=== PATIENT | male | born 1960 | race African-American/Black ===

== ENCOUNTER 2018-06-10 04:46 | Emergency (ER) | payer OTHER ==
[2018-06-10] MEDS ORDERED: Lidocaine 2% Jelly 5 ML TUBE ONE (04:54)
== END 2018-06-10 05:19 | disposition home or self-care (01) ==
LOC: ERS 04:46
DX: T16.2XXA Foreign body in left ear, initial encounter (principal); X58.XXXA Exposure to other specified factors, initial encounter
CPT/HCPCS: 69200